=== PATIENT | male | born 1955 | race Caucasian/White ===

== ENCOUNTER 2016-12-27 09:54 | Inpatient (IN) | payer BC ==
[~2016-12-27] VITALS: Ht 177.8 cm; Wt 89.9 kg
[~2016-12-27 09:54] MED LIST: ADVAIR 100/501 DISK IH; ADVAIR 100/501 DISK NS; AMOX TR-K CLV1 EAC4 PO; COUMADIN5 MG PO; LOVENOX80 MG/0.8 SC; PERCOCET 5/31 TABLET PO; PREDNISONE10 MG PO
[2016-12-27 10:24] LABS: BASE EXCESS -3.7 mEq/L (-3 to +3); BICARBONATE 23.1 mEq/L (22-26); CARBOXY HGB 1.5 % (0-5); COMMENTS - BLOOD GASES A+C+; METHEMOGLOBIN 1.2 % (0-1.5); PCO2 47 mm Hg (35-45); PO2 270 mm Hg (80-100); SITE LR
[2016-12-27 10:25] LABS: DEVICE 840; FI02 50 %; MODE N/V SPONT; PEEP 5 CM/H20; PRES. SUPPORT 10 CM/H2O; TOTAL RESP RATE 22 resp/min
[2016-12-27 10:40] LABS: HEMATOCRIT 48.7 % (38.0-50.0); MCH 28.5 PG (29.0-34.0); MCHC 32.9 G/DL (30.0-36.0); MCV 86.8 FL (86-99); MEAN PLAT.VOLUME 8.9 uM^3 (9.0-12.4); PLATELET COUNT 220 K/uL (156-360); RBC DIS.WIDTH-CV 13.1 % (11.8-14.6); RBC DIS.WIDTH-SD 41.4 % (39-53); RED BLOOD COUNT 5.61 M/uL (4.00-5.50); WHITE BLOOD COUNT 11.7 K/uL (4.1-10.2)
[2016-12-27 10:52] LABS: CHLORIDE 108 mEq/L (99-109); D-DIMER ELISA 0.39 mg/L FEU (< 0.57); POTASSIUM 4.3 mEq/L (3.7-5.4); SODIUM 139 mEq/L (136-147)
[2016-12-27 10:54] LABS: GLUCOSE 133 mg/dL (70-99)
[2016-12-27 10:56] LABS: ANION GAP 13 MEQ/L (2-14); TOTAL BILIRUBIN 0.4 mg/dL (0.0-1.0)
[2016-12-27 10:58] LABS: ALKALINE PHOSPHATASE 57 IU/L (3-129); GFR ESTIMATE (CALCULATED) > 59 mL/min/
[2016-12-27 10:59] LABS: UREA NITROGEN (BUN) 24 mg/dL (9-23)
[2016-12-27 11:04] LABS: TROP-I INTERPRETATION NEGATIVE; TROPONIN-I 0.05 ng/mL (0.0-0.30)
[2016-12-27 11:40] LABS: INFLUENZA A VIRAL ANTIGEN POSITIVE; INFLUENZA B VIRAL ANTIGEN POSITIVE
[2016-12-27] MEDS ORDERED: DILTIAZEM 24HR120 MG PO (11:51)
[2016-12-27] MEDS ORDERED: PROAIR HFA8.5 GM IH (11:53)
[2016-12-27 17:15] LABS: BASE EXCESS -4.4 mEq/L (-3 to +3); BICARBONATE 20.2 mEq/L (22-26); CARBOXY HGB 1.4 % (0-5); COMMENTS - BLOOD GASES A+C+; DEVICE RA; FI02 21 %; METHEMOGLOBIN 1.2 % (0-1.5); O2 FLOW 0 L/MIN; PCO2 35 mm Hg (35-45); PO2 66 mm Hg (80-100); SITE RR; TOTAL RESP RATE 18 resp/min; pH 7.37 (7.35-7.45)
[2016-12-27 18:17] VITALS: BP 133/71
[2016-12-27 21:04] VITALS: BP 132/72
[2016-12-28 00:29] VITALS: BP 132/74
[2016-12-28 05:00] VITALS: BP 128/70
[2016-12-28 07:04] LABS: ANION GAP 7 MEQ/L (2-14); CHLORIDE 109 MEQ/L (99-109); GFR ESTIMATE (CALCULATED) > 59 mL/min/; GLUCOSE 130 mg/dL (70-99); POTASSIUM 4.7 MEQ/L (3.7-5.4); SAMPLE HEMOLYSIS CHECK 0; SAMPLE ICTERIC CHECK 0; SAMPLE LIPEMIA CHECK 0; SODIUM 139 MEQ/L (136-147); UREA NITROGEN (BUN) 16 mg/dL (9-23)
[2016-12-28 07:22] LABS: HEMATOCRIT 41.4 % (38.0-50.0); MCHC 32.4 G/DL (30.0-36.0); MCV 86.4 FL (86-99); MEAN PLAT.VOLUME 9.2 uM^3 (9.0-12.4); PLATELET COUNT 202 K/uL (156-360); RBC DIS.WIDTH-CV 13.3 % (11.8-14.6); RBC DIS.WIDTH-SD 41.5 % (39-53); RED BLOOD COUNT 4.79 M/uL (4.00-5.50); WHITE BLOOD COUNT 11.4 K/uL (4.1-10.2)
[2016-12-28 08:48] VITALS: BP 118/72
[2016-12-28 10:40] VITALS: BP 124/76
[2016-12-28 15:50] VITALS: BP 118/64
[2016-12-28 23:23] VITALS: BP 137/82
[2016-12-29 04:04] VITALS: BP 128/78
[2016-12-29 07:12] LABS: HEMATOCRIT 42.9 % (38.0-50.0); MCH 27.8 PG (29.0-34.0); MCHC 31.9 G/DL (30.0-36.0); MCV 87.2 FL (86-99); MEAN PLAT.VOLUME 9.7 uM^3 (9.0-12.4); PLATELET COUNT 216 K/uL (156-360); RBC DIS.WIDTH-CV 13.5 % (11.8-14.6); RBC DIS.WIDTH-SD 43.4 % (39-53); RED BLOOD COUNT 4.92 M/uL (4.00-5.50); WHITE BLOOD COUNT 13.6 K/uL (4.1-10.2)
[2016-12-29 07:55] VITALS: BP 118/64
[2016-12-29 12:15] VITALS: BP 124/70
[2016-12-29 16:40] VITALS: BP 146/71
[2016-12-29 20:00] VITALS: BP 158/92
[2016-12-30] VITALS: BP 131/76
[2016-12-30 04:13] VITALS: BP 118/75
[2016-12-30 07:08] VITALS: BP 118/64
[2016-12-30] MEDS ORDERED: PREDNISONE10 M1 PO (08:19)
[2016-12-30] MEDS ORDERED: MONTELUKAST SOD10 MG PO (08:19)
[2016-12-30] MEDS ORDERED: ADVAIR HFA120 INHALA IH (08:19)
[2016-12-30] MEDS ORDERED: OSELTAMIVIR PHO75 MG PO (08:19)
== END 2016-12-30 10:55 | disposition home or self-care (01) | DRG 202 ==
LOC: EME → EDBD 09:54 → 2EAST 12:48 → EDOF 12:48 → 2EAST 17:48
PROVIDERS: Emergency Medicine; Hospitalist
DX: J45.901 Unspecified asthma with (acute) exacerbation (principal); J96.01 Acute respiratory failure with hypoxia; J96.02 Acute respiratory failure with hypercapnia; J10.1 Influenza due to other identified influenza virus with other respiratory manifestations; Z79.01 Long term (current) use of anticoagulants; I71.9 Aortic aneurysm of unspecified site, without rupture
CPT/HCPCS: 36600; 71010; 80048; 80053; 82803; 83605; 83880; 84484; 85027; 85379; 87040; 87502; 93005; 94002; 94640; 94640 76; 94644; 99202; 99281; 99285; J1644; J2920; J2930; J3475; J7030